=== PATIENT | male | born 2000 | race American Indian/Alaskan Native ===

== ENCOUNTER 2020-11-16 20:01 | Emergency (ER) | payer OTHER ==
[2020-11-16] MEDS ORDERED: IBUPROFEN 600 MG TAB PO ONE (20:23)
[2020-11-16] MEDS ORDERED: ACETAMINOPHEN 500 MG TAB PO ONE (20:23)
[2020-11-16] MEDS ORDERED: CYCLOBENZAPRINE 10 MG TAB PO ONE (20:23)
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
[2020-11-16 20:38] VITALS: BP 140/77
== END 2020-11-16 20:41 | disposition home or self-care (01) ==
LOC: ED 20:01
DX: S39.012A Strain of muscle, fascia and tendon of lower back, initial encounter (principal); Z79.1 Long term (current) use of non-steroidal anti-inflammatories (NSAID); Z79.899 Other long term (current) drug therapy; V49.59XA Passenger injured in collision with other motor vehicles in traffic accident, initial encounter; Y93.89 Activity, other specified; Y92.410 Unspecified street and highway as the place of occurrence of the external cause; Y99.8 Other external cause status
CPT/HCPCS: 99281